=== PATIENT | female | born 1980 | race Caucasian/White ===

== ENCOUNTER 2021-10-24 15:16 | Outpatient (CLI) | payer OTHER ==
--- NOTE | 2021-10-24 16:54 | XRAY Report ---
PROCEDURE: Cervical Spine 2 View INDICATIONS: NECK PX TECHNIQUE: 3 view(s) of the cervical spine were acquired. COMPARISON: None. FINDINGS: C-SPINE: No acute, displaced fracture or malalignment. The vertebral body heights and intervertebral disc spaces are maintained. SOFT TISSUES: No prevertebral soft tissue thickening. IMPRESSION: 1.No acute osseous abnormality of the cervical spine. Reviewed by: Wilmer Corley MD on 10/24/2021 4:53 PM PST Approved by: Wilmer Corley MD on 10/24/2021 4:53 PM PST Station ID: [id number]
--- NOTE | 2021-10-24 21:01 | XRAY Report ---
PROCEDURE: Lumbar Spine 2 View INDICATIONS: CHRONIC LOW BACK PX TECHNIQUE: 3 views of the lumbar spine were acquired. COMPARISON: None. FINDINGS: Bones: 5 [id number] vertebrae are present. There is trace retrolisthesis of L1 on L2, L2 on L3 , L3 on L4, L4-L5 and L5 on S1. There is mild disc and minimal foraminal narrowing at L5-S1. No verte bral body compression fractures. No suspicious bony lesions. Soft tissues: Overlying bowel gas pattern is normal. No suspicious soft tissue calcifications. IMPRESSION: Minimal early degenerative changes noted L5-S1 as above. Reviewed by: Nellie Bates MD on 10/24/2021 8:59 PM PST Approved by: Nellie Bates MD on 10/24/2021 8:59 PM PST Station ID: [id number]
== END 2021-10-24 15:17 | disposition home or self-care (01) ==
LOC: DI.N 15:16
PROVIDERS: ATTEND Internal Medicine
DX: M47.817 Spondylosis without myelopathy or radiculopathy, lumbosacral region (principal)

== ENCOUNTER 2022-02-27 08:41 | Outpatient (CLI) | payer OTHER ==
--- NOTE | 2022-02-27 10:20 | XRAY Report ---
PROCEDURE: Sacrum/Coccyx INDICATIONS: BACK PX AFTER A FALL TECHNIQUE: 3 views of the sacrum and coccyx acquired. COMPARISON: none FINDINGS: Bones: No fractures or dislocations. No suspicious bony lesions. Soft tissues: Visualized bowel gas pattern is normal. No suspicious soft tissue densities. Linear opacities are noted overlying the pelvis consistent with sterilization. IMPRESSION: No visualized acute fracture or dislocation. However, occult injury cannot be excluded. Recommend gerardo rt interval imaging follow-up in 7-10 days as clinically indicated for additional evaluation. Reviewed by: Nellie Bates MD on 02/27/2022 10:19 AM PDT Approved by: Nellie Bates MD on 02/27/2022 10:19 AM PDT Station ID: [id number]
== END 2022-02-27 23:59 | disposition home or self-care (01) ==
LOC: DI.N 08:41
PROVIDERS: ATTEND Nurse Practitioner
DX: M54.50 Low back pain, unspecified (principal)

== ENCOUNTER 2024-02-03 15:06 | Outpatient (CLI) | payer OTHER ==
--- NOTE | 2024-02-03 17:01 | Ultrasound Report ---
PROCEDURE: Pelvic w/Transvaginal INDICATIONS: PELVIC PAIN TECHNIQUE: Real-time scanning was performed of the pelvic organs, with image documentation. Additional endovagi nal scanning was necessary due to incomplete visualization of the adnexal and endometrial structures by transabdominal scanning. COMPARISON: None. FINDINGS: Uterus: Uterus is anteverted and mildly enlarged size at 10.4 x 5 x 6.7 cm. The myometrium is heter ogeneous. The endometrium measures 12.4 mm in combined thickness. Nabothian cysts. Cervix and vagin a are otherwise within normal limits. 2 uterine fibroids as follows: -Mid anterior submucosal, measures 0.8 x 0.7 x 0.8 cm -Left anterior subserosal, measures 1.7 x 1.7 x 1.7 cm Ovaries: The right ovary measures 2.4 x 1.6 x 1.3 cm, with a calculated ovarian volume of 2.6 cc. T he left ovary measures 3.3 x 1.8 x 2.7 cm, with a calculated ovarian volume of 8.4 cc. The ovaries h ave a normal sonographic appearance. Less than 12 follicles can be seen in each ovary. No adnexal m asses are seen. No cystic lesions measuring greater than 3 cm. Other: No pathologic free abdominal or pelvic fluid. IMPRESSION: 1.Fibroid uterus, the largest of which measures 1.7 x 1.7 x 1.7 cm. 2.Endometrial thickness is 12.4 mm. 3.Heterogeneous myometrium which is nonspecific and may reflect superimposed adenomyosis. 4.Normal sonographic appearance of the bilateral ovaries. Reviewed by: Darryl Mina MD on 02/03/2024 4:59 PM PDT Approved by: Darryl Mina MD on 02/03/2024 4:59 PM PDT Station ID: [id number]
== END 2024-02-03 15:07 | disposition home or self-care (01) ==
LOC: DI 15:06
PROVIDERS: ATTEND Physician Assistant
DX: D25.0 Submucous leiomyoma of uterus (principal); D25.2 Subserosal leiomyoma of uterus